=== PATIENT | male | born 1990 | race Asian ===

== ENCOUNTER 2017-05-07 09:43 | Emergency (ER) | payer SELFPAY ==
[~2017-05-07] VITALS: Ht 182.9 cm; Wt 86.4 kg
[2017-05-07] MEDS ORDERED: FLUT16H NASAL (09:49)
[2017-05-07 10:30] LABS: INFLUENZA TYPE A NEGATIVE FOR TYPE A (NEGATIVE); INFLUENZA TYPE B POSITIVE FOR TYPE B (NEGATIVE)
[2017-05-07 11:32] VITALS: BP 147/79
== END 2017-05-07 11:34 | disposition home or self-care (01) ==
LOC: EMS 09:44
DX: J11.1 Influenza due to unidentified influenza virus with other respiratory manifestations (principal)
CPT/HCPCS: 87804; 99284